=== PATIENT | female | born 1970 | race Two or more races ===

== ENCOUNTER 2016-10-20 15:22 | Inpatient (IN) | payer MEDICAID ==
[~2016-10-20] VITALS: Ht 154.9 cm; Wt 87.4 kg
[2016-10-20 16:25] LABS: Basophils # (auto) 0.1 uL; Basophils % (auto) 0.7 % (0.0-2.0); DEFINITIVE VIEW TRANSMISSION; Eosinophils # (auto) 0.3 uL; Hemoglobin 9.2 g/dL (12.2-16.2); Lymphocytes # (auto) 1.5 uL; Lymphocytes % (auto) 17.1 % (10.0-50.0); Mean Corpuscular Hemoglobin 19.2 pg (28.0-32.0); Mean Corpuscular Hgb Conc. 30.6 g/dL (32.0-36.0); Mean Corpuscular Volume 62.8 fL (80.0-100.0); Mean Platelet Volume 7.8 fL (7.4-10.4); Monocytes # (auto) 0.6 uL; Monocytes % (auto) 7.2 % (0.0-12.0); Neutrophils # (auto) 6.3 uL; Platelet Count (auto) 253 10^3/uL (140-450); Red Cell Distribution Width 18.3 % (11.6-16.0); White Blood Cell 8.7 10^3/uL (4.4-10.8)
[2016-10-20] MEDS ORDERED: ENOXAPARIN SOD 100 MG/1 ML SYRINGE SC ONE (16:30)
[2016-10-20 16:48] LABS: Albumin 3.1 g/dL (3.4-5.0); BUN/Creatinine Ratio 20.3; Calcium 7.8 mg/dL (8.5-10.1); Potassium 3.9 mmol/L (3.5-5.1)
[2016-10-20 16:51] LABS: Bilirubin, Total 0.4 mg/dL (0.2-1.0); Total Protein 7.5 g/dL (6.4-8.2)
[2016-10-20] MEDS ORDERED: MORPHINE SULFATE 4 MG/ML SYRG IV ONE (17:30)
[2016-10-20] MEDS ORDERED: ONDANSETRON HCL 4 MG/2 ML VIAL IV ONE (17:30)
[2016-10-20] MEDS ORDERED: HYDROcodone-ACET 5/325MG TAB PO PRN (19:00)
[2016-10-20] MEDS ORDERED: TEMAZEPAM 15 MG CAP PO PRN (19:00)
[2016-10-20] MEDS ORDERED: MORPHINE SULF INJ 2 MG/ML SYRINGE 1ML IV PRN (19:00)
[2016-10-20] MEDS ORDERED: ACETAMINOPHEN 325 MG TAB PO PRN (19:00)
[2016-10-20] MEDS ORDERED: ONDANSETRON HCL 4 MG/2 ML VIAL IV PRN (19:00)
[2016-10-20] MEDS ORDERED: DOCUSATE SOD 100 MG CAP PO PRN (19:00)
[2016-10-20] MEDS ORDERED: NITROGLYCERIN 0.4 MG SL TAB SL PRN (19:00)
[2016-10-20] MEDS ORDERED: MULTIPLE VITAMIN TAB PO ONE (19:30)
[2016-10-20 19:55] VITALS: BP 144/76
[2016-10-20] MEDS: SODIUM CHLOR 0.9% PF (SALINE LOCK) 10ML VIAL IV SCH (20:58)
[2016-10-20 21:03] VITALS: BP 144/76
[2016-10-21 05:38] LABS: Basophils # (auto) 0 uL; Basophils % (auto) 0.1 % (0.0-2.0); DEFINITIVE VIEW TRANSMISSION; Eosinophils # (auto) 0.2 uL; Eosinophils % (auto) 2.6 % (0.0-7.0); Hemoglobin 9.1 g/dL (12.2-16.2); Lymphocytes # (auto) 1.8 uL; Mean Corpuscular Hemoglobin 19.1 pg (28.0-32.0); Mean Corpuscular Hgb Conc. 30.2 g/dL (32.0-36.0); Mean Corpuscular Volume 63.1 fL (80.0-100.0); Mean Platelet Volume 7.9 fL (7.4-10.4); Monocytes # (auto) 0.8 uL; Monocytes % (auto) 9.8 % (0.0-12.0); Neutrophils # (auto) 4.9 uL; Neutrophils % (auto) 63.5 % (37.0-80.0); Platelet Count (auto) 252 10^3/uL (140-450); Red Cell Distribution Width 18.7 % (11.6-16.0); White Blood Cell 7.7 10^3/uL (4.4-10.8)
[2016-10-21 05:40] VITALS: BP 113/63
[2016-10-21 05:50] LABS: INR 1.11 (0.9-1.15); Partial Thromboplastin Time 48.1 sec (22.64-33.71); Prothrombin Time 11.4 sec (9.37-12.3)
[2016-10-21 05:51] LABS: Potassium 4.6 mmol/L (3.5-5.1)
[2016-10-21 05:53] LABS: BUN/Creatinine Ratio 19.7
[2016-10-21 05:59] LABS: Bilirubin, Total 0.4 mg/dL (0.2-1.0); Total Protein 7.1 g/dL (6.4-8.2)
[2016-10-21] MEDS: SODIUM CHLOR 0.9% PF (SALINE LOCK) 10ML VIAL IV SCH ×3 (06:00→21:38)
[2016-10-21] MEDS: ENOXAPARIN SOD 100 MG/1 ML SYRINGE SC SCH ×2 (06:00→17:39)
[2016-10-21] MEDS: BOOST PLUS 8 ounce PO SCH ×3 (08:07→17:45)
[2016-10-21 09:15] VITALS: BP 112/88
[2016-10-21] MEDS: MULTIPLE VITAMIN TAB PO SCH (10:26)
[2016-10-21 13:00] VITALS: BP 117/80
[2016-10-21] MEDS ORDERED: WARFARIN SODIUM 2.5 MG TAB PO ONE (17:00)
[2016-10-21 17:09] VITALS: BP 110/74
[2016-10-21] MEDS: MORPHINE SULF INJ 2 MG/ML SYRINGE 1ML IV PRN (20:48)
[2016-10-21 21:53] VITALS: BP 132/86
[2016-10-22 04:05] LABS: Alkaline Phosphatase 167 IU/L (39-117)
[2016-10-22 05:37] VITALS: BP 143/78
[2016-10-22] MEDS: ENOXAPARIN SOD 100 MG/1 ML SYRINGE SC SCH (05:42)
[2016-10-22] MEDS: SODIUM CHLOR 0.9% PF (SALINE LOCK) 10ML VIAL IV SCH (05:42)
[2016-10-22 05:51] LABS: INR 1.09 (0.9-1.15); Partial Thromboplastin Time 54.4 sec (22.64-33.71); Prothrombin Time 11.2 sec (9.37-12.3)
[2016-10-22 06:07] LABS: Potassium 4.3 mmol/L (3.5-5.1)
[2016-10-22 06:15] LABS: Albumin 3.1 g/dL (3.4-5.0); BUN/Creatinine Ratio 23.3; Basophils # (auto) 0 uL; Calcium 8.1 mg/dL (8.5-10.1); DEFINITIVE VIEW TRANSMISSION; Eosinophils # (auto) 0.2 uL; Eosinophils % (auto) 2.3 % (0.0-7.0); Hematocrit 31.7 % (36.0-46.0); Hemoglobin 9.8 g/dL (12.2-16.2); Lymphocytes # (auto) 2.2 uL; Mean Corpuscular Hemoglobin 19.6 pg (28.0-32.0); Mean Corpuscular Volume 63.4 fL (80.0-100.0); Mean Platelet Volume 8.1 fL (7.4-10.4); Monocytes # (auto) 0.6 uL; Monocytes % (auto) 7.8 % (0.0-12.0); Neutrophils # (auto) 4.9 uL; Neutrophils % (auto) 61.9 % (37.0-80.0); Platelet Count (auto) 285 10^3/uL (140-450); Red Cell Distribution Width 18.8 % (11.6-16.0); SUSPECT VIEW TRANSMISSION; White Blood Cell 7.9 10^3/uL (4.4-10.8)
[2016-10-22 06:17] LABS: Bilirubin, Total 0.3 mg/dL (0.2-1.0); Total Protein 7.4 g/dL (6.4-8.2)
[2016-10-22] MEDS: BOOST PLUS 8 ounce PO SCH ×2 (08:30→12:00)
[2016-10-22 08:46] VITALS: BP 136/80
[2016-10-22] MEDS: MORPHINE SULF INJ 2 MG/ML SYRINGE 1ML IV PRN (09:15)
[2016-10-22] MEDS: MULTIPLE VITAMIN TAB PO SCH (09:15)
[2016-10-22 12:11] VITALS: BP 136/80
[2016-10-22] MEDS ORDERED: WARFARIN SODIUM 10 MG TAB PO ONE (17:00)
== END 2016-10-22 13:45 | disposition home or self-care (01) | DRG 197 ==
LOC: ER 15:28 → TELE 15:29 → TELE-CENTR 19:34 → CENTRAL 10-22 03:09
PROVIDERS: ADMIT Internal Medicine; ATTEND Internal Medicine
DX: I82.401 Acute embolism and thrombosis of unspecified deep veins of right lower extremity (principal); K76.0 Fatty (change of) liver, not elsewhere classified; E44.0 Moderate protein-calorie malnutrition; E83.51 Hypocalcemia; E66.01 Morbid (severe) obesity due to excess calories; D63.8 Anemia in other chronic diseases classified elsewhere; F17.210 Nicotine dependence, cigarettes, uncomplicated; J45.909 Unspecified asthma, uncomplicated; Z83.3 Family history of diabetes mellitus; Z91.14 Patient's other noncompliance with medication regimen; Z86.718 Personal history of other venous thrombosis and embolism; Z98.890 Other specified postprocedural states; Z68.36 Body mass index [BMI] 36.0-36.9, adult
CPT/HCPCS: 36415; 76705; 78582; 80053; 82977; 83540; 84075; 84080; 85025; 85049; 85379; 85610; 85730; 93971; 96372; 96374; 96375; J2405

== ENCOUNTER 2016-12-11 14:44 | Emergency (ER) | payer MEDICAID ==
[~2016-12-11] VITALS: Ht 154.9 cm; Wt 67.6 kg
[2016-12-11] MEDS ORDERED: MORPHINE SULF INJ 2 MG/ML SYRINGE 1ML IV ONE (23:30)
[2016-12-11] MEDS ORDERED: ONDANSETRON HCL 4 MG/2 ML VIAL IV ONE (23:30)
[2016-12-11 23:52] LABS: Urine Bilirubin Negative (Negative); Urine Blood Negative /uL (Negative); Urine Color Yellow (Yellow); Urine Glucose Normal (Normal); Urine Ketone Negative (Negative); Urine Mucus FEW (None Seen); Urine Nitrite Negative (Negative); Urine RBC 1 /hpf (0 - 4); Urine Squamous Epithelial Cell MOD /hpf (<5); Urine Urobilinogen Normal (Negative); Urine pH 5.5 (5.0-8.0)
[2016-12-12] MEDS ORDERED: MORPHINE SULF INJ 2 MG/ML SYRINGE 1ML ONE (00:07)
[2016-12-12] MEDS ORDERED: ONDANSETRON HCL 4 MG/2 ML VIAL ONE (00:07)
[2016-12-12 00:17] LABS: Basophils # (auto) 0.1 uL; Basophils % (auto) 0.8 % (0.0-2.0); DEFINITIVE VIEW TRANSMISSION; Eosinophils # (auto) 0.3 uL; Eosinophils % (auto) 3.2 % (0.0-7.0); Hematocrit 36.8 % (36.0-46.0); Hemoglobin 11.9 g/dL (12.2-16.2); Lymphocytes % (auto) 20.7 % (10.0-50.0); Mean Corpuscular Hemoglobin 23.6 pg (28.0-32.0); Mean Corpuscular Hgb Conc. 32.4 g/dL (32.0-36.0); Mean Corpuscular Volume 72.9 fL (80.0-100.0); Mean Platelet Volume 7.9 fL (7.4-10.4); Monocytes # (auto) 0.7 uL; Monocytes % (auto) 7.8 % (0.0-12.0); Neutrophils # (auto) 6.4 uL; Neutrophils % (auto) 67.5 % (37.0-80.0); Platelet Count (auto) 309 10^3/uL (140-450); White Blood Cell 9.5 10^3/uL (4.4-10.8)
[2016-12-12 00:21] LABS: Red Cell Distribution Width 24.1 % (11.6-16.0)
[2016-12-12 00:34] LABS: Albumin 3.7 g/dL (3.4-5.0); BUN/Creatinine Ratio 25.6; Calcium 8.2 mg/dL (8.5-10.1); Potassium 3.7 mmol/L (3.5-5.1)
[2016-12-12 00:35] LABS: INR 1.13 (0.9-1.15); Prothrombin Time 11.6 sec (9.37-12.3)
[2016-12-12 00:37] LABS: Bilirubin, Total 0.5 mg/dL (0.2-1.0)
[2016-12-12 01:05] LABS: Platelet Estimate Adequate
[2016-12-12 01:06] LABS: Anisocytosis Slight; Microcytosis Moderate
[2016-12-12] MEDS ORDERED: ENOXAPARIN SOD 80 MG/0.8ML SYRINGE SC ONE (01:30)
[2016-12-12 01:45] VITALS: BP 120/68
== END 2016-12-12 01:39 | disposition home or self-care (01) ==
LOC: ER 15:58
DX: I82.403 Acute embolism and thrombosis of unspecified deep veins of lower extremity, bilateral (principal); J45.909 Unspecified asthma, uncomplicated; F17.210 Nicotine dependence, cigarettes, uncomplicated
CPT/HCPCS: 36415; 80053; 81001; 81025; 85025; 85610; 93970; 96372; 96374; 96375; 99285; J1650; J2270; J2405

== ENCOUNTER 2017-01-18 14:21 | Emergency (ER) | payer MEDICAID ==
[~2017-01-18] VITALS: Ht 154.9 cm; Wt 68.0 kg
[2017-01-18] MEDS ORDERED: ACETAMINOPHEN 325 MG TAB PO ONE ×2 (14:29→15:00)
[2017-01-18] MEDS ORDERED: ACETAMINOPHEN 500 MG TAB PO ONE (15:00)
[2017-01-18] MEDS ORDERED: IBUPROFEN 600 MG TAB PO ONE (15:00)
[2017-01-18] MEDS ORDERED: cefTRIAXone SOD 1,000 MG VL IM ONE (15:15)
[2017-01-18 15:23] VITALS: BP 124/77
== END 2017-01-18 15:48 | disposition home or self-care (01) ==
LOC: ER 14:21
DX: J03.90 Acute tonsillitis, unspecified (principal); J06.9 Acute upper respiratory infection, unspecified; J45.909 Unspecified asthma, uncomplicated; F17.210 Nicotine dependence, cigarettes, uncomplicated
CPT/HCPCS: 71020; 81002; 96372; 99284; J0696

== ENCOUNTER 2017-02-04 13:07 | Emergency (ER) | payer MEDICAID ==
[~2017-02-04] VITALS: Ht 154.9 cm; Wt 88.9 kg
[2017-02-04 13:47] LABS: Basophils # (auto) 0.1 uL; Basophils % (auto) 1.5 % (0.0-2.0); DEFINITIVE VIEW TRANSMISSION; Eosinophils # (auto) 0.4 uL; Eosinophils % (auto) 5.6 % (0.0-7.0); Hematocrit 36.5 % (36.0-46.0); Lymphocytes # (auto) 2.1 uL; Lymphocytes % (auto) 27.4 % (10.0-50.0); Mean Corpuscular Hemoglobin 25.7 pg (28.0-32.0); Mean Corpuscular Hgb Conc. 32.9 g/dL (32.0-36.0); Mean Platelet Volume 8.5 fL (7.4-10.4); Monocytes # (auto) 0.5 uL; Monocytes % (auto) 6.9 % (0.0-12.0); Neutrophils # (auto) 4.6 uL; Neutrophils % (auto) 58.6 % (37.0-80.0); Platelet Count (auto) 389 10^3/uL (140-450); Red Cell Distribution Width 18.1 % (11.6-16.0); White Blood Cell 7.8 10^3/uL (4.4-10.8)
[2017-02-04 14:02] LABS: Partial Thromboplastin Time 65.5 sec (22.64-33.71)
[2017-02-04 14:05] LABS: INR 2.06 (0.9-1.15); Prothrombin Time 22.3 sec (9.37-12.3)
[2017-02-04 14:16] LABS: Albumin 3.5 g/dL (3.4-5.0); BUN/Creatinine Ratio 27.8; Bilirubin, Total 0.3 mg/dL (0.2-1.0); Calcium 8.5 mg/dL (8.5-10.1); Potassium 3.9 mmol/L (3.5-5.1); Total Protein 7.8 g/dL (6.4-8.2)
[2017-02-04 14:25] VITALS: BP 124/77
== END 2017-02-04 14:50 | disposition home or self-care (01) ==
LOC: ER 13:08
DX: M79.89 Other specified soft tissue disorders (principal); Z86.718 Personal history of other venous thrombosis and embolism; Z79.01 Long term (current) use of anticoagulants; J45.909 Unspecified asthma, uncomplicated; F17.210 Nicotine dependence, cigarettes, uncomplicated
CPT/HCPCS: 36415; 80053; 85025; 85610; 85730; 93971

== ENCOUNTER 2017-09-17 20:56 | Emergency (ER) | payer MEDICAID ==
[~2017-09-17] VITALS: Ht 154.9 cm; Wt 86.2 kg
[2017-09-18 04:33] LABS: Basophils # (auto) 0.1 uL; Basophils % (auto) 1.2 % (0.0-2.0); Eosinophils # (auto) 0.6 uL; Eosinophils % (auto) 6.6 % (0.0-7.0); Hematocrit 38.5 % (36.0-46.0); Hemoglobin 12.7 g/dL (12.2-16.2); Lymphocytes # (auto) 2.1 uL; Lymphocytes % (auto) 22.7 % (10.0-50.0); Mean Corpuscular Hemoglobin 27.9 pg (28.0-32.0); Mean Corpuscular Hgb Conc. 32.9 g/dL (32.0-36.0); Mean Corpuscular Volume 84.8 fL (80.0-100.0); Mean Platelet Volume 7.9 fL (6.9-10.8); Monocytes # (auto) 0.8 uL; Monocytes % (auto) 8.4 % (0.0-12.0); Neutrophils # (auto) 5.5 uL; Neutrophils % (auto) 61.1 % (37.0-80.0); Nucleated Red Blood Cells % 0.1 %; Platelet Count (auto) 256 10^3/uL (140-450); White Blood Cell 9.1 10^3/uL (4.4-10.8)
[2017-09-18 04:45] LABS: INR 1.03 (0.9-1.15); Partial Thromboplastin Time 49.7 sec (22.64-33.71); Prothrombin Time 11.2 sec (9.37-12.3)
[2017-09-18 04:55] LABS: Albumin 3.4 g/dL (3.4-5.0); BUN/Creatinine Ratio 23.8; Bilirubin, Total 0.4 mg/dL (0.2-1.0); Calcium 8.1 mg/dL (8.5-10.1); Potassium 3.9 mmol/L (3.5-5.1); Total Protein 7.6 g/dL (6.4-8.2)
[2017-09-18 06:01] VITALS: BP 125/78
[2017-09-18] MEDS ORDERED: methylPREDNISolone SOD SUCC 125 MG/2 ML VL ONE (11:47)
[2017-09-24] MEDS ORDERED: WARF5TAB PO (02:28)
== END 2017-09-18 07:09 | disposition home or self-care (01) ==
LOC: ER 21:00
DX: M79.605 Pain in left leg (principal); L81.9 Disorder of pigmentation, unspecified; M79.89 Other specified soft tissue disorders; F17.210 Nicotine dependence, cigarettes, uncomplicated; J45.909 Unspecified asthma, uncomplicated; Z86.718 Personal history of other venous thrombosis and embolism
CPT/HCPCS: 36415; 80053; 85025; 85610; 85730; 93971; 99285; J2930

== ENCOUNTER 2019-06-27 10:27 | Emergency (ER) | payer MEDICAID ==
[~2019-06-27] VITALS: Ht 154.9 cm; Wt 81.6 kg
[~2019-06-27 10:27] MED LIST: WARF5TAB PO
[2019-06-27 12:09] LABS: Basophils # (auto) 0.1 uL; Basophils % (auto) 1.1 % (0.0-2.0); Eosinophils # (auto) 0.2 uL; Eosinophils % (auto) 4.4 % (0.0-7.0); Hematocrit 34.1 % (36.0-46.0); Hemoglobin 11.6 g/dL (12.2-16.2); Lymphocytes % (auto) 20.8 % (10.0-50.0); Mean Corpuscular Hemoglobin 28.8 pg (28.0-32.0); Mean Corpuscular Hgb Conc. 34.1 g/dL (32.0-36.0); Mean Corpuscular Volume 84.4 fL (80.0-100.0); Monocytes # (auto) 0.4 uL; Monocytes % (auto) 7.7 % (0.0-12.0); Neutrophils # (auto) 3.2 uL; Platelet Count (auto) 200 10^3/uL (140-450); Red Blood Cells 4.04 10^6/uL (4.0-5.20); Red Cell Distribution Width 13.9 % (11.8-14.3); White Blood Cell 4.8 10^3/uL (4.4-10.8)
[2019-06-27 12:12] LABS: Albumin 3.4 g/dL (3.4-5.0); Calcium 8.1 mg/dL (8.5-10.1)
[2019-06-27 12:15] LABS: Bilirubin, Total 0.6 mg/dL (0.2-1.0); Total Protein 7.3 g/dL (6.4-8.2)
[2019-06-27 12:56] LABS: Urine WBC None Seen /hpf (0 - 5)
[2019-06-27 13:13] LABS: Urine Bacteria NONE SEEN /hpf (None Seen)
[2019-06-27 13:16] LABS: Urine Specific Gravity 1.013 (1.001-1.035)
[2019-06-27 13:19] LABS: INR 1.02 (0.9-1.15); Partial Thromboplastin Time 47.8 sec (23.64-32.05)
[2019-06-27 15:08] VITALS: BP 131/71
== END 2019-06-27 16:09 | disposition home or self-care (01) ==
LOC: ER 10:32
DX: D25.9 Leiomyoma of uterus, unspecified (principal); I82.502 Chronic embolism and thrombosis of unspecified deep veins of left lower extremity; I10 Essential (primary) hypertension; F17.210 Nicotine dependence, cigarettes, uncomplicated
CPT/HCPCS: 36415; 76856; 80053; 81001; 84702; 85025; 85610; 85730; 93971

== ENCOUNTER 2019-10-01 10:03 | Emergency (ER) | payer MEDICAID ==
[~2019-10-01] VITALS: Ht 154.9 cm; Wt 86.2 kg
[2019-10-01 10:09] VITALS: BP 133/81
[2019-10-01] MEDS ORDERED: cefTRIAXone SOD 1,000 MG VL IM ONE ×2 (11:15)
[2019-10-01] MEDS ORDERED: ACETAMINOPHEN 500 MG TAB PO ONE (11:15)
== END 2019-10-01 11:58 | disposition home or self-care (01) ==
LOC: ER 10:03
DX: I87.2 Venous insufficiency (chronic) (peripheral) (principal); L03.116 Cellulitis of left lower limb; I10 Essential (primary) hypertension; F17.210 Nicotine dependence, cigarettes, uncomplicated; Z79.01 Long term (current) use of anticoagulants
CPT/HCPCS: 93971; 96372; 99284; J0696

== ENCOUNTER 2021-04-10 11:57 | Emergency (ER) | payer MEDICAID ==
[~2021-04-10] VITALS: Ht 154.9 cm; Wt 90.7 kg
[2021-04-10 14:39] VITALS: BP 118/70
== END 2021-04-10 15:19 | disposition home or self-care (01) ==
LOC: ER 11:57
DX: L03.116 Cellulitis of left lower limb (principal); I10 Essential (primary) hypertension; F17.210 Nicotine dependence, cigarettes, uncomplicated; Z86.2 Personal history of diseases of the blood and blood-forming organs and certain disorders involving the immune mechanism; Z79.01 Long term (current) use of anticoagulants
CPT/HCPCS: 73630; 93971

== ENCOUNTER 2021-04-15 11:40 | Emergency (ER) | payer MEDICAID ==
[~2021-04-15] VITALS: Ht 154.9 cm; Wt 97.5 kg
[2021-04-15 11:54] VITALS: BP 102/60
[2021-04-15 13:05] LABS: Basophils # (auto) 0.1 10 ^3/uL (0-0.2); Basophils % (auto) 0.7 % (0.0-2.0); Eosinophils # (auto) 0.7 10 ^3/uL (0-0.8); Eosinophils % (auto) 9.4 % (0.0-7.0); Hematocrit 35.9 % (36.0-46.0); Hemoglobin 12.4 g/dL (12.2-16.2); Lymphocytes # (auto) 1.5 10 ^3/uL (0.4-5.4); Lymphocytes % (auto) 19.2 % (10.0-50.0); Mean Corpuscular Hemoglobin 29.4 pg (28.0-32.0); Mean Corpuscular Hgb Conc. 34.6 g/dL (32.0-36.0); Monocytes # (auto) 0.5 10 ^3/uL (0-1.3); Monocytes % (auto) 6.6 % (0.0-12.0); Neutrophils # (auto) 5.1 10 ^3/uL (1.6-8.6); Neutrophils % (auto) 64.1 % (37.0-80.0); Red Blood Cells 4.22 10^6/uL (4.0-5.20); Red Cell Distribution Width 14.4 % (11.8-14.3); White Blood Cell 7.9 10^3/uL (4.4-10.8)
[2021-04-15 13:11] LABS: INR 1.18 (0.9-1.15); Partial Thromboplastin Time 57.8 sec (23.0-31.2)
[2021-04-15 13:16] LABS: Albumin 3.6 g/dL (3.4-5.0); BUN/Creatinine Ratio 16.3; Potassium 4.3 mmol/L (3.5-5.1)
[2021-04-15 13:19] LABS: Bilirubin, Total 0.6 mg/dL (0.2-1.0); Total Protein 7.9 g/dL (6.4-8.2)
== END 2021-04-15 14:09 | disposition home or self-care (01) ==
LOC: ER 11:40
DX: M79.605 Pain in left leg (principal); I10 Essential (primary) hypertension; Z86.2 Personal history of diseases of the blood and blood-forming organs and certain disorders involving the immune mechanism; Z79.01 Long term (current) use of anticoagulants
CPT/HCPCS: 36415; 80053; 85025; 85610; 85730; 93971

== ENCOUNTER 2022-02-25 14:01 | Emergency (ER) | payer MEDICAID ==
[~2022-02-25] VITALS: Ht 154.9 cm; Wt 95.3 kg
[2022-02-25 14:07] VITALS: BP 110/57
[2022-02-25] MEDS ORDERED: ONDANSETRON ODT 4 MG TAB PO ONE (15:00)
== END 2022-02-25 16:59 | disposition left against medical advice (07) ==
LOC: ER 14:04
DX: J02.9 Acute pharyngitis, unspecified (principal); R05.9 Cough, unspecified; R11.2 Nausea with vomiting, unspecified; I10 Essential (primary) hypertension; Z86.2 Personal history of diseases of the blood and blood-forming organs and certain disorders involving the immune mechanism; Z79.01 Long term (current) use of anticoagulants